=== PATIENT | male | born 1945 | race Caucasian/White ===

== ENCOUNTER 2018-07-15 07:19 | Emergency (ER) | payer OTHER ==
[2018-07-15] MEDS: ONDANSETRON (ODT) 4 MG TAB ODT (07:48)
[2018-07-15] MEDS: HYDROCODONE/APAP (5/325) TAB PO (07:49)
== END 2018-07-15 09:09 | disposition home or self-care (01) ==
LOC: E/R 07:19
DX: G44.209 Tension-type headache, unspecified, not intractable (principal); I16.0 Hypertensive urgency; I10 Essential (primary) hypertension
CPT/HCPCS: 70450; 99284-25